=== PATIENT | male | born 1985 | race Two or more races ===

== ENCOUNTER 2017-01-01 11:44 | Emergency (ER) | payer SELFPAY ==
--- NOTE | 2017-01-01 11:57 | C.PDOC ---
History Of Present Illness 31M arrived via ems after roommate found him lying on the kitchen floor snoring and not breathing normally. he reportedly has a hx of drug abuse although his roommate states he doesn't believe he uses opioids. he last saw him around 4am although he says other roommates reported seeing him awake after that time. per ems he had agonal resp on their arrival and then his breathing improved after 4mg narcan. Time Seen by Provider: 01/01/17 11:57 Chief Complaint (Nursing): Altered Mental Status Past Medical History Vital Signs: Last Vital Signs Temp 97.4 F L 01/01/17 13:50 Pulse 95 H 01/01/17 18:13 Resp 15 01/01/17 18:13 BP 109/63 01/01/17 18:13 Pulse Ox 100 01/01/17 18:13 Family History: States: Unknown Family Hx Review Of Systems Review Of Systems: ROS cannot be obtained secondary to pt's inabilty to answer questions. Physical Exam - Physical Exam Appears: No Acute Distress Skin: Warm, Dry Head: Atraumatic, No Swelling, No Abrasion, No Laceration Eye(s): bilateral: PERRL Nose: No Epistaxis Oral Mucosa: Moist Tongue: No Laceration Lips: No Laceration Neck: Normal ROM, No Step Off Deformity Cardiovascular: Rhythm Regular Respiratory: No Decreased Breath Sounds, No Accessory Muscle Use, No Rales, No Rhonchi, No Wheezing Gastrointestinal/Abdominal: Soft, No Tenderness Extremity: No Swelling Pulses: Left Radial: Normal, Right Radial: Normal Neurological/Psych: Other (lethargic. awakes to voice. follows commands. unintelligible speech. moves all extremities. no focal deficits.) ED Course And Treatment - Laboratory Results Result Diagrams: 01/01/17 12:31 01/01/17 12:31 Medical Decision Making Medical Decision Makin pt sleeping but wakes to voice and does admit to opioid use today 16[address] [employer] dm in the ED and accepts to ICU, agrees w logan gtt 1845 the pt is now a&ox3 and requesting to sign out AMA. he reports taking 40mg opana. denies SI. I advised against leaving and explained that there is a high likelihood he will need to come back as he has required multiple doses of narcan. I explained this could lead to respiratory arrest which can lead to permanent disability or . He verbalizes understanding of the reasons to stay and risks of leaving. I believe he has the capacity to make this decision at this time. He has a friend who will stay with him tonight and I let him know he is welcome to come back at any time should he change his mind. Disposition - Disposition Disposition: AGAINST MEDICAL ADVICE Disposition Time: 17:01 Condition: GUARDED - Clinical Impression Clinical Impression: Opioid overdose
[2017-01-01] MEDS ORDERED: Sodium Chloride 0.9% 1,000 ML IV ONE (12:02)
[2017-01-01] MEDS ORDERED: Sodium Chloride 0.9% 1,000 ML ONE (12:31)
[2017-01-01 12:35] LABS: BASO % 0.2 % (0.0-2.0); EOS % 0.1 % (0.0-4.0); HEMATOCRIT 43.1 % (35.0-51.0); LYMPH # 0.8 K/uL (1.0-4.3); LYMPH % 4.7 % (20.0-40.0); MEAN CELL VOLUME 86.7 fL (80.0-94.0); MEAN CORPUSCULAR HEMOGLOBIN 28.9 pg (27.0-31.0); MEAN CORPUSCULAR HGB CONC 33.3 g/dL (33.0-37.0); MEAN PLATELET VOLUME 8.6 fL (7.2-11.7); MONO # 0.7 K/uL (0.0-0.8); MONO % 4.3 % (0.0-10.0); NRBC % 0.1 % (0.0-2.0); PLATELET COUNT 240 K/uL (130-400); RED CELL DISTRIBUTION WIDTH 13.2 % (11.5-14.5); WHITE BLOOD COUNT 17.2 K/uL (4.8-10.8)
[2017-01-01 12:50] LABS: CHLORIDE 98 mmol/L (98-107); POTASSIUM 3.6 mmol/L (3.6-5.2); SODIUM 144 mmol/L (132-148)
[2017-01-01 12:52] LABS: GFR AFRICAN-AMERICAN > 60
[2017-01-01 12:53] LABS: ALB/GLOB RATIO 1.6 (1.0-2.1); ALKALINE PHOSPHATASE 72 U/L (38-126); ALT/SGPT 77 U/L (21-72); AST/SGOT 89 U/L (17-59); BLOOD UREA NITROGEN 16 mg/dL (9-20); CALCIUM 8.5 mg/dl (8.6-10.4); CARBON DIOXIDE 24 mmol/L (22-30); GLUCOSE,RANDOM 130 mg/dL (75-110); TOTAL PROTEIN 7.6 g/dL (6.3-8.3)
[2017-01-01 12:54] LABS: ALCOHOL SERUM < 10 mg/dl (0-10)
[2017-01-01 13:11] LABS: NEUTROPHIL 88 % (50-75); TOTAL CELLS COUNTED 100
[2017-01-01 13:41] VITALS: TEMP 97.4
[2017-01-01] MEDS ORDERED: Naloxone 0.4 mg/ml Inj (Adult) IVP STA ×3 (14:16→15:51)
[2017-01-01] MEDS ORDERED: Naloxone 0.4 mg/ml Inj (Adult) ONE ×3 (14:33→15:50)
[2017-01-01] MEDS ORDERED: Naloxone 2 MG in Sodium Chloride 0.9% 500 ML IV SCH (17:15)
--- NOTE | 2017-01-01 17:52 | CP.PCM.CON ---
History of Present Illness - History of Present Illness History of Present Illness: 31yo M. PMHx Opioid abuse. patient was found unconscious at home by roommate. In ED between doses of narcan, he told ED doctor that he took an opioid type substance. He is maintaining his airway but requires continual dosing of naloxone. admitting to ICU for monitoring. Review of Systems - Review of Systems Systems not reviewed;Unavailable: Altered Mental Status Past Patient History - Past Social History Smoking Status: Unknown If Ever Smoked - PSYCHIATRIC Hx Substance Use: (unk) - ANESTHESIA Hx Anesthesia: No Meds Allergies/Adverse Reactions: Allergies Allergy/AdvReac Type Severity Reaction Status Date / Time No Known Allergies Allergy Unverified 01/01/17 11:59 - Medications Medications: Current Medications Naloxone HCl 2 mg/ Sodium (Chloride) 600 mls @ 100 mls/hr IV .Q6H CELENA Physical Exam - Head Exam Head Exam: ATRAUMATIC, NORMAL INSPECTION, NORMOCEPHALIC - Eye Exam Eye Exam: EOMI, Normal appearance, PERRL - ENT Exam ENT Exam: Mucous Membranes Moist, Normal Exam - Neck Exam Neck exam: Positive for: Normal Inspection - Respiratory Exam Respiratory Exam: Clear to Auscultation Bilateral Additional comments: bradypnea - Cardiovascular Exam Cardiovascular Exam: REGULAR RHYTHM - GI/Abdominal Exam GI & Abdominal Exam: Normal Bowel Sounds, Soft. absent: Tenderness - Neurological Exam Neurological exam: Alert (lethargic) Results - Vital Signs Recent Vital Signs: Last Vital Signs Temp 97.4 F L 01/01/17 13:50 Pulse 97 H 01/01/17 15:13 Resp 8 L 01/01/17 15:13 BP 109/68 01/01/17 15:13 Pulse Ox 98 01/01/17 15:13 - Labs Result Diagrams: 01/01/17 12:31 01/01/17 12:31 Labs: Laboratory Results - last 24 hr 01/01/17 01/01/17 01/01/17 12:31 12:31 12:31 WBC 17.2 H RBC 4.97 Hgb 14.4 Hct 43.1 MCV 86.7 MCH 28.9 MCHC 33.3 RDW 13.2 Plt Count 240 MPV 8.6 Neut % (Auto) 90.7 H Lymph % (Auto) 4.7 L [place] % (Auto) 4.3 Eos % (Auto) 0.1 Baso % (Auto) 0.2 Neut # 15.6 H Lymph # 0.8 L [place] # 0.7 Eos # 0.0 Baso # 0.0 Neutrophils % (Manual) 88 H Band Neutrophils % 4 H Lymphocytes % (Manual) 6 L Monocytes % (Manual) 2 Platelet Estimate Normal RBC Morphology Normal Sodium 144 Potassium 3.6 Chloride 98 Carbon Dioxide 24 Anion Gap 26 H BUN 16 Creatinine 1.3 Est GFR ( Amer) > 60 Est GFR (Non-Af Amer) > 60 Random Glucose 130 H Calcium 8.5 L Total Bilirubin 1.0 AST 89 H ALT 77 H Alkaline Phosphatase 72 Total Creatine Kinase Total Protein 7.6 Albumin 4.7 Globulin 2.9 Albumin/Globulin Ratio 1.6 Salicylates < 1.0 Urine Opiates Screen Urine Methadone Screen Acetaminophen < 10.0 L Ur Barbiturates Screen Ur Phencyclidine Scrn Ur Amphetamines Screen U Benzodiazepines Scrn U Oth Cocaine Metabols U Cannabinoids Screen Alcohol, Quantitative < 10 01/01/17 01/01/17 13:36 16:57 WBC RBC Hgb Hct MCV MCH MCHC RDW Plt Count MPV Neut % (Auto) Lymph % (Auto) [place] % (Auto) Eos % (Auto) Baso % (Auto) Neut # Lymph # [place] # Eos # Baso # Neutrophils % (Manual) Band Neutrophils % Lymphocytes % (Manual) Monocytes % (Manual) Platelet Estimate RBC Morphology Sodium Potassium Chloride Carbon Dioxide Anion Gap BUN Creatinine Est GFR ( Amer) Est GFR (Non-Af Amer) Random Glucose Calcium Total Bilirubin AST ALT Alkaline Phosphatase Total Creatine Kinase 216 H Total Protein Albumin Globulin Albumin/Globulin Ratio Salicylates Urine Opiates Screen Negative Urine Methadone Screen Negative Acetaminophen Ur Barbiturates Screen Negative Ur Phencyclidine Scrn Negative Ur Amphetamines Screen Positive U Benzodiazepines Scrn Positive U Oth Cocaine Metabols Negative U Cannabinoids Screen Negative Alcohol, Quantitative Assessment & Plan (1) Opioid overdose Assessment and Plan: 31yo M. PMHx opioid abuse. p/w opioid overdose. Neuro: lethargic, starting on naloxone drip to speed recovery off of opioid overdose. Pulm: bradypneic, maintaining airway currently. nasal canula oxygen. CV: hemodynamically stable Hem: no acute issues Renal: no acute issues, urine output within normal limits. Endo: no acute issues GI: NPO for now with AMS ID: no acute issues DVT proph - lovenox GI proph - not currently indicated garland for strict I/O's during acute illness Code status - full code Critical Care Time spent 35 minutes Multi-disciplinary rounds were performed with house staff, nursing, speech therapy, respiratory therapy, pharmacy and nutrition with integrated input from the primary team/attending and other consulting services. The documented time is cumulative and includes review of patient data/exams/labs/chart review and examination of the patient on rounds and throughout the day; time is exclusive of any procedures or teaching time. Status: Acute
[2017-01-01 18:14] VITALS: BP 109/63; PULSE 95; RESP 15; O2SAT 100
--- NOTE | 2017-01-01 18:45 | CP.PCM.HP ---
Past Patient History - Past Social History Smoking Status: Unknown If Ever Smoked - PSYCHIATRIC Hx Substance Use: (unk) - ANESTHESIA Hx Anesthesia: No Meds Allergies/Adverse Reactions: Allergies Allergy/AdvReac Type Severity Reaction Status Date / Time No Known Allergies Allergy Unverified 01/01/17 11:59 Results - Vital Signs Recent Vital Signs: Last Vital Signs Temp 97.4 F L 01/01/17 13:50 Pulse 95 H 01/01/17 18:13 Resp 15 01/01/17 18:13 BP 109/63 01/01/17 18:13 Pulse Ox 100 01/01/17 18:13 - Labs Result Diagrams: 01/01/17 12:31 01/01/17 12:31 Labs: Laboratory Results - last 24 hr 01/01/17 01/01/17 01/01/17 12:31 12:31 12:31 WBC 17.2 H RBC 4.97 Hgb 14.4 Hct 43.1 MCV 86.7 MCH 28.9 MCHC 33.3 RDW 13.2 Plt Count 240 MPV 8.6 Neut % (Auto) 90.7 H Lymph % (Auto) 4.7 L [place] % (Auto) 4.3 Eos % (Auto) 0.1 Baso % (Auto) 0.2 Neut # 15.6 H Lymph # 0.8 L [place] # 0.7 Eos # 0.0 Baso # 0.0 Neutrophils % (Manual) 88 H Band Neutrophils % 4 H Lymphocytes % (Manual) 6 L Monocytes % (Manual) 2 Platelet Estimate Normal RBC Morphology Normal Sodium 144 Potassium 3.6 Chloride 98 Carbon Dioxide 24 Anion Gap 26 H BUN 16 Creatinine 1.3 Est GFR ( Amer) > 60 Est GFR (Non-Af Amer) > 60 Random Glucose 130 H Calcium 8.5 L Total Bilirubin 1.0 AST 89 H ALT 77 H Alkaline Phosphatase 72 Total Creatine Kinase Total Protein 7.6 Albumin 4.7 Globulin 2.9 Albumin/Globulin Ratio 1.6 Salicylates < 1.0 Urine Opiates Screen Urine Methadone Screen Acetaminophen < 10.0 L Ur Barbiturates Screen Ur Phencyclidine Scrn Ur Amphetamines Screen U Benzodiazepines Scrn U Oth Cocaine Metabols U Cannabinoids Screen Alcohol, Quantitative < 10 01/01/17 01/01/17 13:36 16:57 WBC RBC Hgb Hct MCV MCH MCHC RDW Plt Count MPV Neut % (Auto) Lymph % (Auto) [place] % (Auto) Eos % (Auto) Baso % (Auto) Neut # Lymph # [place] # Eos # Baso # Neutrophils % (Manual) Band Neutrophils % Lymphocytes % (Manual) Monocytes % (Manual) Platelet Estimate RBC Morphology Sodium Potassium Chloride Carbon Dioxide Anion Gap BUN Creatinine Est GFR ( Amer) Est GFR (Non-Af Amer) Random Glucose Calcium Total Bilirubin AST ALT Alkaline Phosphatase Total Creatine Kinase 216 H Total Protein Albumin Globulin Albumin/Globulin Ratio Salicylates Urine Opiates Screen Negative Urine Methadone Screen Negative Acetaminophen Ur Barbiturates Screen Negative Ur Phencyclidine Scrn Negative Ur Amphetamines Screen Positive U Benzodiazepines Scrn Positive U Oth Cocaine Metabols Negative U Cannabinoids Screen Negative Alcohol, Quantitative
--- NOTE | 2017-01-01 19:22 | CP.PCM.HP ---
History of Present Illness - History of Present Illness History of Present Illness: Patient seen and examined in [facility] 4 ED at 6:08PM on 01/01/17 CC: "I dont want to be here" HPI: 31 year old Male PMHx testicular cancer s/p radiation (2012), ADHD was per ED triage note BIBA via ALS after being found unresponsive on the floor with agonal breathing. As er EMS, pt given total of 4mg Narcan in the field. Pt sleeping but easily arouseable on arrival. Patient seen 6PM with good friend at beside. Patient awake with Naloxone drip running at bedside. Patient permits to share medical information in front of good friend. He reports the last thing he remembers was at 8AM he was working on his bike outside, and reports a good friend gave him "Opana 40mg tab" and he reports he took one. Per discussion with good friend, his roommates found him around 11 AM, where she received a call from them that they are going to the hospital. Patient reports this was his first time taking this medication and this hasnt happened before. Patient reports he was taking it for back pain which has been flaring up from old soccer injuries. Patient reports he also takes Adderral, last use last night, when he knows he needs to focus. Patient denies SI/denies HI. Patient denies headache, denies vision changes, denies neck pain, denies chest pain, denies cough, denies abdominal pain, denies nausea, denies vomitting, denies dysuria, denies constipation, denies leg pains and reports back pains. Past medical hx: testicular cancer s/p radiation (2012); reports he is in remission but hasn't recently followed up, ADHD (on Adderall--which he uses "when he wants to" Surgery hx: orchiectomy? (for testicular cancer) Allergies: NKDA Medications: Adderall Social Hx: 3/4-1 packet a day since he was only in his 20s, denies alcohol, reports he does weed but doesn't like it because it makes him feels sleepy, denies other ilict drug use, both his parents are in [place]-->He does not want to share he is in the hospital with them, he is not /no kids; lost job about 2 months ago used to work in [employer]; moved up here from [place] for cancer treatment Family hx; unable to illict at this time HCM: Dr Rodríguez- Family practitioner. Please note: I spoke with the patient with his friend at beside, present recommended him to stay at the hospital in the ICU overnight given he is on the antidote for his narcotic overdose. Friend at bedside urging him to stay overnight. Recommended him to stay to be observed in the ICU. Patient admitted to the ICU prior to my arrival. patient is awake, alert, oriented able to articulate in Belarusian-->Jan 01 and Lamine is the President. Patient is sarcastic at bedside but reports his cancer history is true and would not joke about it. Recommended to patient to not joke like this when doctors and nursing staff are asking regarding his medical information given he came in for a drug overdose. Spoke with Dr. Germán Mosquera about 645PM, patient wants to leave against medical advice in spite knowing the risks; risks of leaving prematurely from the hospital were discussed at bedside. patient signed out from the ED. Patient AMA from the hospital. Present on Admission - Present on Admission Any Indicators Present on Admission: No History of DVT/PE: No History of Uncontrolled Diabetes: No Urinary Catheter: No Decubitus Ulcer Present: No Review of Systems - Constitutional Constitutional: absent: Chills, Headache - EENT Eyes: absent: Change in Vision Ears: absent: Decreased Hearing Nose/Mouth/Throat: absent: Nasal Congestion, Nasal Discharge, Sore Throat - Cardiovascular Cardiovascular: absent: Chest Pain, Dyspnea, Palpitations - Respiratory Respiratory: absent: Cough, Dyspnea - Gastrointestinal Gastrointestinal: absent: Abdominal Pain, Constipation, Diarrhea, Nausea, Vomiting - Genitourinary Genitourinary: absent: Change in Urinary Stream, Dysuria, Flank Pain - Musculoskeletal Musculoskeletal: Back Pain. absent: Muscle Cramps, Neck Pain, Numbness - Integumentary Integumentary: Dry Skin, Rash. absent: Lesions, Skin Ulcer, Swelling, Jaundice - Neurological Neurological: Headaches. absent: Confusion, Numbness, Vertigo - Psychiatric Psychiatric: Difficulty Concentrating, Irritability. absent: Anxiety, Auditory Hallucinations, Confusion, Depression, Hallucinations, Suicidal Ideation, Tactile Hallucinations - Endocrine Endocrine: absent: Palpitations Past Patient History - Infectious Disease Hx of Infectious Diseases: None - Tetanus Immunizations Tetanus Immunization: Unknown - Past Medical History & Family History Past Medical History?: Yes - Past Social History Smoking Status: Heavy Smoker > 10 Cigarettes Daily Alcohol: None Drugs: Cannabis, Opiates, Prescription medications Home Situation {Lives}: Roommate - CARDIAC Hx Cardiac Disorders: No - PULMONARY Hx Respiratory Disorders: No - NEUROLOGICAL Hx Neurological Disorder: No - HEENT Hx HEENT Problems: No - ENDOCRINE/METABOLIC Hx Endocrine Disorders: No - HEMATOLOGICAL/ONCOLOGICAL Other/Comment: testicular cancer - MUSCULOSKELETAL/RHEUMATOLOGICAL Hx Musculoskeletal Disorders: Yes Hx Back Pain: Yes - PSYCHIATRIC Hx Psychophysiologic Disorder: Yes Hx Substance Use: Yes (weed, cigarette smoking) Other/Comment: ADHD - SURGICAL HISTORY Hx Surgeries: Yes Other/Comment: testicular surgery - ANESTHESIA Hx Anesthesia: No Meds Allergies/Adverse Reactions: Allergies Allergy/AdvReac Type Severity Reaction Status Date / Time No Known Allergies Allergy Unverified 01/01/17 11:59 Physical Exam - Constitutional Appears: No Acute Distress - Head Exam Head Exam: NORMAL INSPECTION - Eye Exam Eye Exam: EOMI, PERRL. absent: Nystagmus, Scleral icterus Pupil Exam: PERRL. absent: Fixed, Irregular, Unequal - ENT Exam ENT Exam: Mucous Membranes Dry - Neck Exam Neck exam: Positive for: Normal Inspection. Negative for: Meningismus - Respiratory Exam Respiratory Exam: Clear to Auscultation Bilateral, NORMAL BREATHING PATTERN. absent: Accessory Muscle Use, Chest Wall Tenderness, Rales, Rhonchi, Wheezes, Stridor - Cardiovascular Exam Cardiovascular Exam: RRR, +S1, +S2 - GI/Abdominal Exam GI & Abdominal Exam: Normal Bowel Sounds, Soft. absent: Distended, Guarding, Mass, Rebound, Rigid, Tenderness - Extremities Exam Extremities exam: Positive for: normal capillary refill, pedal pulses present. Negative for: pedal edema, tenderness - Neurological Exam Neurological exam: Alert, Oriented x3 - Skin Skin Exam: Dry, Intact, Normal Color, Warm Additional comments: tattoo over left wrist Abrasion over right elbow Erythematous plaques over the hands Results - Vital Signs Recent Vital Signs: Last Vital Signs Temp 97.4 F L 01/01/17 13:50 Pulse 95 H 01/01/17 18:13 Resp 15 01/01/17 18:13 BP 109/63 01/01/17 18:13 Pulse Ox 100 01/01/17 18:13 - Labs Result Diagrams: 01/01/17 12:31 01/01/17 12:31 Labs: Laboratory Results - last 24 hr 01/01/17 01/01/17 01/01/17 12:31 12:31 12:31 WBC 17.2 H RBC 4.97 Hgb 14.4 Hct 43.1 MCV 86.7 MCH 28.9 MCHC 33.3 RDW 13.2 Plt Count 240 MPV 8.6 Neut % (Auto) 90.7 H Lymph % (Auto) 4.7 L [place] % (Auto) 4.3 Eos % (Auto) 0.1 Baso % (Auto) 0.2 Neut # 15.6 H Lymph # 0.8 L [place] # 0.7 Eos # 0.0 Baso # 0.0 Neutrophils % (Manual) 88 H Band Neutrophils % 4 H Lymphocytes % (Manual) 6 L Monocytes % (Manual) 2 Platelet Estimate Normal RBC Morphology Normal Sodium 144 Potassium 3.6 Chloride 98 Carbon Dioxide 24 Anion Gap 26 H BUN 16 Creatinine 1.3 Est GFR ( Amer) > 60 Est GFR (Non-Af Amer) > 60 Random Glucose 130 H Calcium 8.5 L Total Bilirubin 1.0 AST 89 H ALT 77 H Alkaline Phosphatase 72 Total Creatine Kinase Total Protein 7.6 Albumin 4.7 Globulin 2.9 Albumin/Globulin Ratio 1.6 Salicylates < 1.0 Urine Opiates Screen Urine Methadone Screen Acetaminophen < 10.0 L Ur Barbiturates Screen Ur Phencyclidine Scrn Ur Amphetamines Screen U Benzodiazepines Scrn U Oth Cocaine Metabols U Cannabinoids Screen Alcohol, Quantitative < 10 01/01/17 01/01/17 13:36 16:57 WBC RBC Hgb Hct MCV MCH MCHC RDW Plt Count MPV Neut % (Auto) Lymph % (Auto) [place] % (Auto) Eos % (Auto) Baso % (Auto) Neut # Lymph # [place] # Eos # Baso # Neutrophils % (Manual) Band Neutrophils % Lymphocytes % (Manual) Monocytes % (Manual) Platelet Estimate RBC Morphology Sodium Potassium Chloride Carbon Dioxide Anion Gap BUN Creatinine Est GFR ( Amer) Est GFR (Non-Af Amer) Random Glucose Calcium Total Bilirubin AST ALT Alkaline Phosphatase Total Creatine Kinase 216 H Total Protein Albumin Globulin Albumin/Globulin Ratio Salicylates Urine Opiates Screen Negative Urine Methadone Screen Negative Acetaminophen Ur Barbiturates Screen Negative Ur Phencyclidine Scrn Negative Ur Amphetamines Screen Positive U Benzodiazepines Scrn Positive U Oth Cocaine Metabols Negative U Cannabinoids Screen Negative Alcohol, Quantitative Assessment & Plan (1) Opioid overdose Status: Acute Comment: Patient seen and evaluated by ICU, accepted to ICU overnight. Placed on Narcan gtt at 1655. Confirmed he took Opana 40mg PO X1. Patient wants to leave against medical advice at 1845. AAOX3. He speaks in german, recommended to not leave prematurely with his female friend present at bedside. Patient left AMA from the ED. ED physician spoke with patient discussed risks and benefits of leaving against medical advice prematurely given narcotic drug overdose. (2) Left against medical advice Status: Acute - Date & Time Date: 01/01/17 Time: 19:40
--- NOTE | 2017-01-01 19:42 | CP.PCM.DIS ---
Provider - Provider Date of Admission: 01/01/17 17:12 Attending physician: Jose G Gale MD Consults: ICU Time Spent in preparation of Discharge (in minutes): 10 Diagnosis - Discharge Diagnosis (1) Left against medical advice Status: Acute (2) Opioid overdose Status: Acute Comment: left against medical advice Hospital Course - Lab Results Lab Results: Most Recent Lab Values WBC 17.2 K/uL (4.8-10.8) H 01/01/17 12:31 RBC 4.97 Mil/uL (4.40-5.90) 01/01/17 12:31 Hgb 14.4 g/dL (12.0-18.0) 01/01/17 12:31 Hct 43.1 % (35.0-51.0) 01/01/17 12:31 MCV 86.7 fL (80.0-94.0) 01/01/17 12:31 MCH 28.9 pg (27.0-31.0) 01/01/17 12:31 MCHC 33.3 g/dL (33.0-37.0) 01/01/17 12:31 RDW 13.2 % (11.5-14.5) 01/01/17 12:31 Plt Count 240 K/uL (130-400) 01/01/17 12:31 MPV 8.6 fL (7.2-11.7) 01/01/17 12:31 Neut % (Auto) 90.7 % (50.0-75.0) H 01/01/17 12:31 Lymph % (Auto) 4.7 % (20.0-40.0) L 01/01/17 12:31 Gordon % (Auto) 4.3 % (0.0-10.0) 01/01/17 12:31 Eos % (Auto) 0.1 % (0.0-4.0) 01/01/17 12:31 Baso % (Auto) 0.2 % (0.0-2.0) 01/01/17 12:31 Neut # 15.6 K/uL (1.8-7.0) H 01/01/17 12:31 Lymph # 0.8 K/uL (1.0-4.3) L 01/01/17 12:31 Gordon # 0.7 K/uL (0.0-0.8) 01/01/17 12:31 Eos # 0.0 K/uL (0.0-0.7) 01/01/17 12:31 Baso # 0.0 K/uL (0.0-0.2) 01/01/17 12:31 Neutrophils % (Manual) 88 % (50-75) H 01/01/17 12:31 Band Neutrophils % 4 % (0-2) H 01/01/17 12:31 Lymphocytes % (Manual) 6 % (20-40) L 01/01/17 12:31 Monocytes % (Manual) 2 % (0-10) 01/01/17 12:31 Platelet Estimate Normal (NORMAL) 01/01/17 12:31 RBC Morphology Normal 01/01/17 12:31 Sodium 144 mmol/L (132-148) 01/01/17 12:31 Potassium 3.6 mmol/L (3.6-5.2) 01/01/17 12:31 Chloride 98 mmol/L (98-107) 01/01/17 12:31 Carbon Dioxide 24 mmol/L (22-30) 01/01/17 12:31 Anion Gap 26 (10-20) H 01/01/17 12:31 BUN 16 mg/dL (9-20) 01/01/17 12:31 Creatinine 1.3 MG/DL (0.8-1.5) 01/01/17 12:31 Est GFR ( Amer) > 60 01/01/17 12:31 Est GFR (Non-Af Amer) > 60 01/01/17 12:31 Random Glucose 130 mg/dL (75-110) H 01/01/17 12:31 Calcium 8.5 mg/dl (8.6-10.4) L 01/01/17 12:31 Total Bilirubin 1.0 mg/dL (0.2-1.3) 01/01/17 12:31 AST 89 U/L (17-59) H 01/01/17 12:31 ALT 77 U/L (21-72) H 01/01/17 12:31 Alkaline Phosphatase 72 U/L (38-126) 01/01/17 12:31 Total Creatine Kinase 216 U/L (55-170) H 01/01/17 16:57 Total Protein 7.6 g/dL (6.3-8.3) 01/01/17 12:31 Albumin 4.7 g/dL (3.5-5.0) 01/01/17 12:31 Globulin 2.9 gm/dL (2.2-3.9) 01/01/17 12:31 Albumin/Globulin Ratio 1.6 (1.0-2.1) 01/01/17 12:31 Salicylates < 1.0 mg/dL 1 01/01/17 12:31 Urine Opiates Screen Negative (NEGATIVE) 01/01/17 13:36 Urine Methadone Screen Negative (NEGATIVE) 01/01/17 13:36 Acetaminophen < 10.0 ug/mL (10.0-30.0) L 01/01/17 12:31 Ur Barbiturates Screen Negative (NEGATIVE) 01/01/17 13:36 Ur Phencyclidine Scrn Negative (NEGATIVE) 01/01/17 13:36 Ur Amphetamines Screen Positive (NEGATIVE) 01/01/17 13:36 U Benzodiazepines Scrn Positive (NEGATIVE) 01/01/17 13:36 U Oth Cocaine Metabols Negative (NEGATIVE) 01/01/17 13:36 U Cannabinoids Screen Negative (NEGATIVE) 01/01/17 13:36 Alcohol, Quantitative < 10 mg/dl (0-10) 01/01/17 12:31 - Hospital Course Hospital Course: Patient seen and examined in [place] [address] ED at 6:08PM on 01/01/17 CC: "I dont want to be here" HPI: 31 year old Male PMHx testicular cancer s/p radiation (2012), ADHD was per ED triage note BIBA via ALS after being found unresponsive on the floor with agonal breathing. As er EMS, pt given total of 4mg Narcan in the field. Pt sleeping but easily arouseable on arrival. Patient seen 6PM with good friend at beside. Patient awake with Naloxone drip running at bedside. Patient permits to share medical information in front of good friend. He reports the last thing he remembers was at 8AM he was working on his bike outside, and reports a good friend gave him "Opana 40mg tab" and he reports he took one. Per discussion with good friend, his roommates found him around 11 AM, where she received a call from them that they are going to the hospital. Patient reports this was his first time taking this medication and this hasnt happened before. Patient reports he was taking it for back pain which has been flaring up from old soccer injuries. Patient reports he also takes Adderral, last use last night, when he knows he needs to focus. Patient denies SI/denies HI. Patient denies headache, denies vision changes, denies neck pain, denies chest pain, denies cough, denies abdominal pain, denies nausea, denies vomitting, denies dysuria, denies constipation, denies leg pains and reports back pains. Past medical hx: testicular cancer s/p radiation (2012); reports he is in remission but hasn't recently followed up, ADHD (on Adderall--which he uses "when he wants to" Surgery hx: orchiectomy? (for testicular cancer) Allergies: NKDA Medications: Adderall Social Hx: 3/-1 packet a day since he was only in his 20s, denies alcohol, reports he does weed but doesn't like it because it makes him feels sleepy, denies other ilict drug use, both his parents are in [place]-->He does not want to share he is in the hospital with them, he is not /no kids; lost job about 2 months ago used to work in [employer]; moved up here from [place] for cancer treatment Family hx; unable to illict at this time HCM: Dr Rodírguez- Family practitioner. Please note: I spoke with the patient with his friend at beside, present recommended him to stay at the hospital in the ICU overnight given he is on the antidote for his narcotic overdose. Friend at bedside urging him to stay overnight. Recommended him to stay to be observed in the ICU. Patient admitted to the ICU prior to my arrival. patient is awake, alert, oriented able to articulate in Syriac-->Jan 01 and Lamine is the President. Patient is sarcastic at bedside but reports his cancer history is true and would not joke about it. Recommended to patient to not joke like this when doctors and nursing staff are asking regarding his medical information given he came in for a drug overdose. Spoke with Dr. Germán Mosquera, ED physician about 645PM, patient wants to leave against medical advice in spite knowing the risks; risks of leaving prematurely from the hospital were discussed at bedside. patient signed out from the ED. Patient AMA from the hospital. This is a brief summary of patient's hospitalization. patient was admitted to the ICU, awaiting to be transferred from the ED to ICU for monitoring overnight following overdose on Opana, narcotic medication. Please refer to physical examination from the H&P which is from the same date. - Date & Time of H&P Date of H&P: 01/01/17 Time of H&P: 19:40 Discharge Exam - Head Exam Head Exam: NORMAL INSPECTION Discharge Plan - Follow Up Plan Condition: GUARDED Disposition: AGAINST MEDICAL ADVICE Additional Instructions: Please follow up with your doctor. Return to the ER for any worsening symptoms or for any other concerns. You are welcome to return at any time should you change your mind. Referrals: [facility] [Outside]
--- NOTE | 2017-01-02 14:23 | CARD ---
APPROVED REPORT EKG Measurement Heart [id number] ID [id number] <Conclusion> Sinus rhythm with marked sinus arrhythmia Otherwise normal ECG
== END 2017-01-01 19:44 | disposition left against medical advice (07) ==
LOC: C.ER 11:44 → C.9E 17:12 → UNDOADMIN 17:12 → C.9I 18:14 → C.9E 18:14 → UNDODISIN 18:20 → C.9I 18:57 → C.9E 18:57 → C.ER 19:44 → UNDODISIN 19:44
DX: T40.601A Poisoning by unspecified narcotics, accidental (unintentional), initial encounter (principal); R40.20 Unspecified coma
CPT/HCPCS: 80053; 82550; 85025; 93005; 96361; 96365; 96375; 96376; 99285; G0480; J2310; J7040